=== PATIENT | male | born 1965 | race Two or more races ===

== ENCOUNTER 2017-11-23 17:21 | Emergency (ER) | payer OTHER ==
[~2017-11-23] VITALS: Ht 157.5 cm; Wt 81.5 kg
[2017-11-23 17:29] VITALS: BP 119/78
[2017-11-23] MEDS ORDERED: KETOROLAC 30 MG/1 ML ONE (17:43)
[2017-11-23] MEDS ORDERED: KETOROLAC 60 MG/2 ML IM ONE (18:00)
== END 2017-11-23 18:21 | disposition home or self-care (01) ==
LOC: ED 18:15
DX: M10.9 Gout, unspecified (principal)
CPT/HCPCS: 96372; 99283; J1885

== ENCOUNTER 2018-06-24 18:11 | Emergency (ER) | payer OTHER ==
[~2018-06-24] VITALS: Ht 160 cm; Wt 88.2 kg
[~2018-06-24 18:11] MED LIST: METH5TAB6 PO
[2018-06-24] MEDS ORDERED: FAMOTIDINE 20 MG TABLET ONE (18:51)
--- NOTE | 2018-06-24 18:54 | NUR ---
PATIENT ARRIVES TO THE ER WITH A RASH FROM THE WINTER AND COLD THAT HE GETS EVERY WINTER, HE STATES ITS GOTTEN WORSE IN LAST FEW DAYS. TYPICALLY IT IS HELPED BY LOTION BUT THIS TIME LOTION IS NOT HELPING. MEDICATED AND IN BED. NO SOB
[2018-06-24] MEDS ORDERED: FAMOTIDINE 20 MG TABLET PO ONE (19:00)
[2018-06-24 19:17] VITALS: BP 133/78
--- NOTE | 2018-06-24 19:18 | NUR ---
d/c paperwork reviewed, shows understanding. states feels improved
--- NOTE | 2018-06-24 19:27 | NUR ---
fsbs was 104
== END 2018-06-24 19:29 | disposition home or self-care (01) ==
LOC: ED 19:23
DX: L20.84 Intrinsic (allergic) eczema (principal); M19.90 Unspecified osteoarthritis, unspecified site
CPT/HCPCS: 82962; 99283; J7512

== ENCOUNTER 2018-08-31 12:29 | Emergency (ER) | payer OTHER ==
[~2018-08-31] VITALS: Ht 160 cm; Wt 85.0 kg
[2018-08-31 13:14] LABS: MICROSCOPIC AUTO
[2018-08-31 13:15] LABS: CULTURE INDICATED? NO
[2018-08-31 13:42] LABS: BASOPHILS # (AUTO) 0.04 x10^3/uL (0-0.1); BASOPHILS % (AUTO) 1 % (0-1); EOSINOPHILS # (AUTO) 0.17 x10^3/uL (0-0.4); EOSINOPHILS % (AUTO) 3 % (1-7); LYMPHOCYTES # (AUTO) 0.88 x10^3/uL (1-3.4); LYMPHOCYTES % (AUTO) 15 % (22-44); MD NO; MEAN CORPUSCULAR HEMOGLOBIN 30.9 pg (27.5-34.5); MEAN CORPUSCULAR HGB CONC 33.3 g/dL (33.2-36.2); MEAN CORPUSCULAR VOLUME 92.8 fL (81-97); MEAN PLATELET VOLUME 8.2 fL (7.4-10.4); MONOCYTES # (AUTO) 0.56 x10^3/uL (0.2-0.8); MONOCYTES % (AUTO) 10 % (2-9); NEUTROPHILS # (AUTO) 4.21 x10^3/uL (1.8-6.8); NEUTROPHILS % (AUTO) 72 % (42-75); PLATELET COUNT 287 x10^3/uL (130-400); RED BLOOD COUNT 5.36 x10^6/uL (4.38-5.82); RED CELL DISTRIBUTION WIDTH 13.4 % (9.4-14.8)
--- NOTE | 2018-08-31 13:47 | NUR ---
BREAK RN: PT TO ROOM FROM LOBBY, GAIT STEADY.
--- NOTE | 2018-08-31 13:49 | NUR ---
53 YR OLD MALE HERE WITH C/O ABD PAIN AND BACK PAIN. DR BARNES AT BEDSIDE TO [facility] PT
[2018-08-31 13:55] LABS: ALBUMIN 3.8 g/dL (3.4-5.0); ANION GAP 4 mmol/L (5-15); CALCIUM 8.9 mg/dL (8.5-10.1); CHLORIDE 108 mmol/L (98-107)
[2018-08-31] MEDS ORDERED: APRE30TA2 PO (13:57)
[2018-08-31 13:58] LABS: ALANINE AMINOTRANSFERASE 49 U/L (12-78); ALKALINE PHOSPHATASE 47 U/L (45-117); BILIRUBIN,TOTAL 0.6 mg/dL (0.2-1.0); CREATININE 1.16 mg/dL (0.7-1.3); TOTAL PROTEIN 7.8 g/dL (6.4-8.2)
[2018-08-31] MEDS ORDERED: KETOROLAC 30 MG/1 ML IM ONE (14:00)
[2018-08-31] MEDS ORDERED: KETOROLAC 30 MG/1 ML ONE (14:00)
--- NOTE | 2018-08-31 14:05 | NUR ---
PT MEDICATED FOR 8/10 PAIN ORDERED. PT UPDATED ON POC. NO NEEDS EXPRESSED AT THIS TIME.
--- NOTE | 2018-08-31 14:19 | NUR ---
REPORT TO FERNANDO BROWNING.
--- NOTE | 2018-08-31 15:05 | NUR ---
SBAR report received from RNMercedes. Pt back in room from CT.
--- NOTE | 2018-08-31 15:49 | NUR ---
Dr. Butler at bedside to discuss ED findings and POC.
[2018-08-31 16:11] VITALS: BP 131/79
--- NOTE | 2018-08-31 16:11 | NUR ---
Patient/Caregiver given discharge instructions and they have confirmed that they understand the instructions. Patient ambulatory with steady gait.
== END 2018-08-31 16:14 | disposition home or self-care (01) ==
LOC: ED 16:01
DX: N20.0 Calculus of kidney (principal); R10.84 Generalized abdominal pain
CPT/HCPCS: 36415; 74176; 80053; 81001; 83690; 85025; 96372; 99284; J1885

== ENCOUNTER 2018-09-01 14:34 | Emergency (ER) | payer OTHER ==
[~2018-09-01] VITALS: Ht 160 cm; Wt 85.4 kg
[~2018-09-01 14:34] MED LIST changes: +APRE30TA2 PO
[2018-09-01 15:22] LABS: BASOPHILS # (AUTO) 0.02 x10^3/uL (0-0.1); BASOPHILS % (AUTO) 0 % (0-1); EOSINOPHILS # (AUTO) 0.11 x10^3/uL (0-0.4); EOSINOPHILS % (AUTO) 2 % (1-7); LYMPHOCYTES # (AUTO) 0.74 x10^3/uL (1-3.4); LYMPHOCYTES % (AUTO) 14 % (22-44); MD NO; MEAN CORPUSCULAR HEMOGLOBIN 30.8 pg (27.5-34.5); MEAN CORPUSCULAR HGB CONC 33.3 g/dL (33.2-36.2); MEAN CORPUSCULAR VOLUME 92.3 fL (81-97); MONOCYTES # (AUTO) 0.52 x10^3/uL (0.2-0.8); MONOCYTES % (AUTO) 10 % (2-9); NEUTROPHILS # (AUTO) 3.76 x10^3/uL (1.8-6.8); NEUTROPHILS % (AUTO) 73 % (42-75); PLATELET COUNT 297 x10^3/uL (130-400); RED CELL DISTRIBUTION WIDTH 13.4 % (9.4-14.8)
[2018-09-01 15:34] LABS: ALANINE AMINOTRANSFERASE 45 U/L (12-78); ANION GAP 3 mmol/L (5-15); CALCIUM 8.9 mg/dL (8.5-10.1); CHLORIDE 109 mmol/L (98-107); CREATININE 1.15 mg/dL (0.7-1.3)
[2018-09-01 15:37] LABS: ALKALINE PHOSPHATASE 47 U/L (45-117); BILIRUBIN,TOTAL 0.6 mg/dL (0.2-1.0); TOTAL PROTEIN 8.1 g/dL (6.4-8.2)
--- NOTE | 2018-09-01 16:36 | NUR ---
CLINICAL REHABILITATION COORDINATOR: PT TO ROOM FROM LOBBY, URINE COLLECTED AND SENT TO LAB
--- NOTE | 2018-09-01 16:50 | NUR ---
PT PRESENTS TO ED WITH ABD PAIN, LBM YESTERDAY, DIFFUSE ABD TENDERNESS. VSS, PT ON RA. CALL LIGHT WITHIN REACH. URINE SENT TO LAB
[2018-09-01 17:06] LABS: MICROSCOPIC AUTO
[2018-09-01 17:13] LABS: CULTURE INDICATED? NO
[2018-09-01] MEDS ORDERED: DIPHENHYDRAMINE 50 MG/ML, 1ML ONE (17:48)
[2018-09-01] MEDS ORDERED: METOCLOPRAMIDE 5 MG/ML, 2ML ONE (17:48)
[2018-09-01] MEDS ORDERED: DIPHENHYDRAMINE 50 MG/ML, 1ML IVPush ONE (18:00)
[2018-09-01] MEDS ORDERED: METOCLOPRAMIDE 5 MG/ML, 2ML IVPush ONE (18:00)
--- NOTE | 2018-09-01 19:01 | NUR ---
RECEIVED BEDSIDE REPORT FROM VIOLET BROWNING. PT RESTING IN BED AUDIBLY SNORING. WILL CONTINUE TO MONITOR. PT UP FOR RECHECK, ALL RESULTS BACK.
[2018-09-01 19:43] VITALS: BP 112/72
== END 2018-09-01 20:00 | disposition home or self-care (01) ==
LOC: ED 19:54
DX: R10.84 Generalized abdominal pain (principal); M19.90 Unspecified osteoarthritis, unspecified site
CPT/HCPCS: 36415; 76700; 80053; 81001; 83690; 85025; 96374; 96375; 99284; J1200; J2765

== ENCOUNTER 2018-09-07 14:14 | Emergency (ER) | payer OTHER ==
[~2018-09-07] VITALS: Ht 160 cm; Wt 84.6 kg
[2018-09-07 15:01] LABS: ALANINE AMINOTRANSFERASE 46 U/L (12-78); ALBUMIN 3.9 g/dL (3.4-5.0); ANION GAP 6 mmol/L (5-15); CALCIUM 8.4 mg/dL (8.5-10.1); CHLORIDE 110 mmol/L (98-107); CREATININE 1.22 mg/dL (0.7-1.3)
[2018-09-07 15:03] LABS: ALKALINE PHOSPHATASE 38 U/L (45-117); BILIRUBIN,TOTAL 0.7 mg/dL (0.2-1.0); TOTAL PROTEIN 7.6 g/dL (6.4-8.2)
[2018-09-07 15:07] LABS: BASOPHILS # (AUTO) 0.04 x10^3/uL (0-0.1); BASOPHILS % (AUTO) 1 % (0-1); EOSINOPHILS # (AUTO) 0.16 x10^3/uL (0-0.4); EOSINOPHILS % (AUTO) 3 % (1-7); LYMPHOCYTES # (AUTO) 1.18 x10^3/uL (1-3.4); LYMPHOCYTES % (AUTO) 22 % (22-44); MD NO; MEAN CORPUSCULAR HEMOGLOBIN 30.8 pg (27.5-34.5); MEAN CORPUSCULAR HGB CONC 33.3 g/dL (33.2-36.2); MEAN CORPUSCULAR VOLUME 92.6 fL (81-97); MEAN PLATELET VOLUME 8.4 fL (7.4-10.4); MONOCYTES # (AUTO) 0.41 x10^3/uL (0.2-0.8); MONOCYTES % (AUTO) 8 % (2-9); NEUTROPHILS # (AUTO) 3.62 x10^3/uL (1.8-6.8); NEUTROPHILS % (AUTO) 67 % (42-75); PLATELET COUNT 335 x10^3/uL (130-400); RED BLOOD COUNT 5.19 x10^6/uL (4.38-5.82); RED CELL DISTRIBUTION WIDTH 13.1 % (9.4-14.8)
--- NOTE | 2018-09-07 15:49 | NUR ---
PT PRESENTS TO ED WITH [id number] AND ABD PAIN, PT HAS REFERRAL TO GI MD ON WEDNESDAY BUT PAIN IS STILL THERE. PT PLACED ON MONITOR, VSS, CALL LIGHT WITHIN REACH
[2018-09-07 16:42] VITALS: BP 105/58
== END 2018-09-07 17:07 | disposition home or self-care (01) ==
LOC: ED 16:27
DX: R10.84 Generalized abdominal pain (principal); E03.9 Hypothyroidism, unspecified; M19.90 Unspecified osteoarthritis, unspecified site; I10 Essential (primary) hypertension
CPT/HCPCS: 36415; 74021; 80053; 83690; 85025; 99284

== ENCOUNTER 2020-08-01 15:03 | Emergency (ER) | payer OTHER ==
[~2020-08-01] VITALS: Ht 160 cm; Wt 92.5 kg
[2020-08-01 15:15] VITALS: BP 154/61
--- NOTE | 2020-08-01 15:49 | NUR ---
MED REQUESTED FROM PHARMACY.
[2020-08-01] MEDS ORDERED: INDOMETHACIN 50 MG CAPSULE PO ONE (16:00)
--- NOTE | 2020-08-01 16:18 | NUR ---
AIR CARRIER OPERATIONS INSPECTOR PER MAR.
== END 2020-08-01 16:21 | disposition home or self-care (01) ==
LOC: ED 16:11
DX: M10.072 Idiopathic gout, left ankle and foot (principal); M13.172 Monoarthritis, not elsewhere classified, left ankle and foot; I10 Essential (primary) hypertension
CPT/HCPCS: 99283